=== PATIENT | female | born 1975 ===

== ENCOUNTER 2016-10-11 16:34 | Emergency (ER) | payer OTHER ==
[2016-10-11 16:34] VITALS: BMI 27.3
[2016-10-11 16:43] VITALS: O2SAT 100
[2016-10-11 17:13] LABS: RBC URINE 12 /hpf (0-3); URINE BACTERIA RARE (<OCC); URINE BILIRUBIN NEGATIVE (NEGATIVE); URINE BLOOD NEGATIVE (NEGATIVE); URINE COLOR Yellow (YELLOW); URINE GLUCOSE (UA) NORMAL (Normal); URINE KETONE NEGATIVE (NEGATIVE); URINE LEUKOCYTE ESTERASE 1+ Leu/uL (Negative); URINE PROTEIN 1+ mg/dL (NEGATIVE); URINE UROBILINOGEN NORMAL mg/dL (0.2-1.0); WBC URINE 2 /hpf (0-5)
[2016-10-11 17:29] LABS: BASO % 0.7 % (0.0-2.0); EOS # 0.1 K/uL (0.0-0.7); EOS % 1.6 % (0.0-4.0); HEMATOCRIT 35.6 % (34.0-47.0); LYMPH # 1.9 K/uL (1.0-4.3); LYMPH % 29.1 % (20.0-40.0); MEAN CELL VOLUME 95.3 fL (81.0-99.0); MEAN CORPUSCULAR HEMOGLOBIN 31.9 pg (27.0-31.0); MEAN CORPUSCULAR HGB CONC 33.5 g/dL (33.0-37.0); MEAN PLATELET VOLUME 10.4 fL (7.2-11.7); MONO # 0.5 K/uL (0.0-0.8); MONO % 8.2 % (0.0-10.0); NRBC % 0.1 % (0.0-2.0); RED CELL DISTRIBUTION WIDTH 13.4 % (11.5-14.5); WHITE BLOOD COUNT 6.4 K/uL (4.8-10.8)
[2016-10-11 17:32] LABS: CHLORIDE 95 mmol/L (98-107); POTASSIUM 3.5 mmol/L (3.6-5.2); SODIUM 136 mmol/L (132-148)
[2016-10-11 17:34] LABS: GFR AFRICAN-AMERICAN > 60
[2016-10-11 17:35] LABS: ALB/GLOB RATIO 0.9 (1.0-2.1); ALKALINE PHOSPHATASE 54 U/L (38-126); ALT/SGPT 23 U/L (9-52); AST/SGOT 19 U/L (14-36); BILIRUBIN,TOTAL 0.2 mg/dL (0.2-1.3); BLOOD UREA NITROGEN 16 mg/dL (7-17); CARBON DIOXIDE 24 mmol/L (22-30); GLUCOSE,RANDOM 90 mg/dL (65-105); TOTAL PROTEIN 9.4 g/dL (6.3-8.3)
[2016-10-11 17:36] LABS: CALCIUM 8.9 mg/dl (8.6-10.4)
--- NOTE | 2016-10-11 18:10 | C.PDOC ---
History Of Present Illness The patient, a 41 y/o female who is currently , presents to the ED for evaluation of lower abdominal pain which began yesterday. Patient describes her pain as as "cramping" sensation. Patient is unaware of the gestational age but states she was informed about her 2 weeks ago during a clinic visit. Patient reports nausea but denies fever, chills, vaginal discharge/bleeding. Time Seen by Provider: 10/11/16 17:00 Chief Complaint (Nursing): Abdominal Pain History Per: Patient History/Exam Limitations: no limitations Onset/Duration Of Symptoms: Hrs Current Symptoms Are (Timing): Still Present Location Of Pain/Discomfort: Other (+lower abdomen ) Radiation Of Pain To:: None Quality Of Discomfort: Cramping, "Pain" Associated Symptoms: Nausea. denies: Fever, Chills Exacerbating Factors: None Alleviating Factors: None Recent travel outside of the [place]: No Additional History Per: Patient Abnormal Vaginal Bleeding: No Past Medical History Reviewed: Historical Data, Nursing Documentation, Vital Signs Vital Signs: Last Vital Signs Temp 97.8 F 10/11/16 17:28 Pulse 82 10/11/16 17:28 Resp 20 10/11/16 17:28 BP 129/76 10/11/16 17:28 Pulse Ox 100 10/11/16 18:48 - Medical History PMH: No Chronic Diseases Surgical History: No Surg Hx Family History: States: Unknown Family Hx - Social History Hx Alcohol Use: No Hx Substance Use: No - Immunization History Hx Tetanus Toxoid Vaccination: No Hx Influenza Vaccination: No Hx Pneumococcal Vaccination: No Review Of Systems Except As Marked, All Systems Reviewed And Found Negative. Constitutional: Negative for: Fever, Chills Gastrointestinal: Positive for: Nausea, Abdominal Pain (lower) Genitourinary: Negative for: Vaginal Discharge, Vaginal Bleeding Physical Exam - Physical Exam Appears: Non-toxic, No Acute Distress Skin: Normal Color, Warm, Dry Head: Atraumatic, Normacephalic Eye(s): bilateral: Normal Inspection, EOMI Oral Mucosa: Moist Neck: Normal ROM, Supple Chest: Symmetrical, No Deformity, No Tenderness Cardiovascular: Rhythm Regular, No Murmur Respiratory: Normal Breath Sounds, No Rales, No Rhonchi, No Wheezing Gastrointestinal/Abdominal: Soft, No Tenderness, No Guarding, No Rebound Back: Normal Inspection, No Vertebral Tenderness, No Paraspinal Tenderness Extremity: Normal ROM, Capillary Refill (less than 2 seconds ) Neurological/Psych: Oriented x3, Normal Speech, Normal Cognition Gait: Steady ED Course And Treatment - Laboratory Results Result Diagrams: 10/11/16 17:21 10/11/16 17:21 O2 Sat by Pulse Oximetry: 100 (on RA) Pulse Ox Interpretation: Normal Medical Decision Making Medical Decision Making: Impression: 41y/o female with lower abdominal pain Plan: * labs * Transvaginal US * Tylenol PO * reassess and disposition Progress Notes: labs and Transvaginal US ordered. Patient received Tylenol PO. Disposition - Disposition Disposition Time: 18:55 Condition: STABLE - POA Present On Arrival: None - Clinical Impression Clinical Impression: Threatened - PA / WALL SCRAPER / Resident Statement ED has reviewed & agrees with the documentation as recorded. - Scribe Statement The provider has reviewed the documentation as recorded by the Scribe (Dana Mckeon) All medical record entries made by the Scribe were at my direction and personally dictated by me. I have reviewed the chart and agree that the record accurately reflects my personal performance of the history, physical exam, medical decision making, and the department course for this patient. I have also personally directed, reviewed, and agree with the discharge instructions and disposition. Physician Patient Turnover Patient Signed Over To: Jayson Leung DO Handoff Comments: Pending US, re-eval and dispo
--- NOTE | 2016-10-11 19:59 | US ---
EXAM: US First Trimester, Transabdominal CLINICAL HISTORY: 41 years old, female; Pain; complicated by abdominal or pelvic pain; Lower; First trimester; Gestational age or lmp: 09/2016, 4 weeks 4 days by dates; ; Additional info: with pain TECHNIQUE: Real-time transabdominal obstetrical ultrasound of the maternal pelvis and a first trimester with image documentation. COMPARISON: There are no prior studies for comparison. FINDINGS: Uterus: Uterus is retroflexed. The uterus measures approximately 8.3 x 4.8 x 6.3 cm. Endometrium measures approximately 11 mm in width area there is no intrauterine gestation. Adnexa: Neither ovaries could be identified. There are no adnexal masses IMPRESSION: Retroflexed uterus, no intrauterine or ectopic gestation identified EXAM: US , Transvaginal CLINICAL HISTORY: 41 years old, female; Pain; complicated by abdominal or pelvic pain; Lower; First trimester; Gestational age or lmp: 09/2016; ; Additional info: with pain TECHNIQUE: Real-time transvaginal obstetrical ultrasound of the maternal pelvis and a first trimester with image documentation. Transvaginal imaging was used for better evaluation of the fetus and adnexa. EXAM DATE/TIME: 10/11/2016 5:07 PM COMPARISON: There are no prior studies for comparison. FINDINGS: Uterus: Uterus measures approximately 7.3 x 5 x 6 cm. Cervix measures approximately 3 cm in length. There is a small gestational sac in the endometrium. Gestational sac has mean diameter of 8.5 mm. There is a yolk sac, internal diameter 0.6 mm. pole is not visible Right ovary: Right ovary measures approximately 3.14 x 1.94 x 2.28 cm.There is expected blood flow on Doppler imaging there is a corpus luteum in the right ovary. Left ovary: Left ovary measures approximately 2.58 x 1.15 x 2.40 cm.There is expected blood flow on Doppler imaging IMPRESSION: Intrauterine gestation too early to date; right corpus luteum
[2016-10-11 20:07] VITALS: BP 103/69; PULSE 81; RESP 18; TEMP 98.3
== END 2016-10-11 20:54 | disposition home or self-care (01) ==
LOC: C.ER 16:34
DX: O20.0 Threatened abortion (principal); Z3A.01 Less than 8 weeks gestation of pregnancy

== ENCOUNTER 2016-11-22 07:02 | Emergency (ER) | payer OTHER ==
[2016-11-22 07:18] VITALS: BP 105/68; PULSE 83; RESP 18; TEMP 97.7; O2SAT 99
--- NOTE | 2016-11-22 07:27 | C.PDOC ---
History Of Present Illness 41 y/o female, currently 11 weeks , presents to the ED for evaluation of chills, runny nose, and sore throat for the past 2 days. She denies cough, shortness of breath, abdominal pain, nausea, vomiting, diarrhea, vaginal bleeding/discharge, dysuria. Time Seen by Provider: 11/22/16 07:13 Chief Complaint (Nursing): Cough, Cold, Congestion History Per: Patient History/Exam Limitations: no limitations Onset/Duration Of Symptoms: Days (2) Current Symptoms Are (Timing): Still Present Location Of Pain: Throat Sick Contacts (Context): None Associated Symptoms: Chills, Sore Throat, Nasal Congestion. denies: Fever, Cough, Sputum, Neck Pain, Nausea, Vomiting, Diarrhea Ear Symptoms: Bilateral: None Severity: Mild Additional History Per: Patient Past Medical History Reviewed: Historical Data, Nursing Documentation, Vital Signs Vital Signs: Last Vital Signs Temp 97.7 F 11/22/16 07:16 Pulse 83 11/22/16 07:16 Resp 18 11/22/16 07:16 BP 105/68 11/22/16 07:16 Pulse Ox 99 11/22/16 08:02 - Medical History PMH: No Chronic Diseases Family History: States: No Known Family Hx - Social History Hx Alcohol Use: No Hx Substance Use: No - Immunization History Hx Tetanus Toxoid Vaccination: No Hx Influenza Vaccination: No Hx Pneumococcal Vaccination: No Review Of Systems Except As Marked, All Systems Reviewed And Found Negative. Constitutional: Positive for: Chills ENT: Positive for: Nose Congestion, Throat Pain. Negative for: Ear Pain, Throat Swelling Cardiovascular: Negative for: Chest Pain, Palpitations Respiratory: Negative for: Cough, Shortness of Breath, Sputum, Wheezing Gastrointestinal: Negative for: Nausea, Vomiting, Abdominal Pain, Diarrhea Genitourinary: Negative for: Dysuria, Hematuria, Vaginal Discharge, Vaginal Bleeding Physical Exam - Physical Exam Appears: Well, Non-toxic, No Acute Distress Skin: Normal Color, Warm, Dry, No Rash Eye(s): bilateral: Normal Inspection Ear(s): Bilateral: Normal Nose: Discharge (rhinorrhea) Oral Mucosa: Moist Throat: Normal, No Erythema, No Exudate, No Drooling Neck: Normal, Normal ROM, Supple Cardiovascular: Rhythm Regular Respiratory: Normal Breath Sounds, No Rales, No Rhonchi, No Wheezing Gastrointestinal/Abdominal: Normal Exam, Bowel Sounds, Soft, No Tenderness, Other (gravid ) Extremity: Normal ROM Neurological/Psych: Oriented x3 ED Course And Treatment O2 Sat by Pulse Oximetry: 99 (on RA) Pulse Ox Interpretation: Normal Progress Note: Patient given PO Claritin and Tylenol in ED, as well as Rx for same. She was insturucted to follow up with PMD/clinic in 1-2 days, and with ob /cross country coach within 1 week. Patient understands she should return to ED if she develops any cocerning symptoms. Reevaluation Time: 07:35 Reassessment Condition: Improved Disposition Counseled Patient/Family Regarding: Studies Performed, Diagnosis, Need For Followup - Disposition Referrals: [facility] [Outside] Disposition: HOME/ ROUTINE Disposition Time: 07:35 Condition: STABLE Additional Instructions: FOLLOW UP WITH YOUR DOCTOR/CLINIC IN 1-2 DAYS USE MEDICATIONS NEEDED DRINK PLENTY OF FLUIDS RETURN TO ER IF SYMPTOMS WORSEN Prescriptions: Acetaminophen [Tylenol 325mg tab] 650 mg PO Q6 PRN #30 tab PRN Reason: pain/fever Loratadine [Claritin] 10 mg PO DAILY PRN #14 tab PRN Reason: rhinorhea Instructions: Upper Respiratory Infection (ED), Viral Syndrome (ED) Print Language: TURKISH - POA Present On Arrival: None - Clinical Impression Clinical Impression: Viral disease, Upper respiratory infection - Scribe Statement The provider has reviewed the documentation as recorded by the Modesta Mckeon Provider Attestation: All medical record entries made by the Modesta were at my direction and personally dictated by me. I have reviewed the chart and agree that the record accurately reflects my personal performance of the history, physical exam, medical decision making, and the department course for this patient. I have also personally directed, reviewed, and agree with the discharge instructions and disposition.
== END 2016-11-22 07:39 | disposition home or self-care (01) ==
LOC: C.ER 07:02
DX: J06.9 Acute upper respiratory infection, unspecified (principal); B34.9 Viral infection, unspecified

== ENCOUNTER 2017-01-04 07:28 | Emergency (ER) | payer OTHER ==
[2017-01-04 07:34] VITALS: BMI 28.1
[2017-01-04 07:35] VITALS: BP 105/68; PULSE 87; RESP 15; TEMP 98.1; O2SAT 100
--- NOTE | 2017-01-04 08:10 | C.PDOC ---
History Of Present Illness 41-year-old female, presents to the emergency department with complaints of a generalized headache and "feeling tired." Patient states she has been experiencing trouble sleeping for the past three days. Patient recently moved into a new place and states that she is very stressed. Patient notes that she was at work yesterday and felt generalized weakness. Today, patient reports that she has work again, but is requesting a work note. Denies any fevers, nausea/vomiting, chills, chest pain, shortness of breath, dizziness, or any other associated symptoms. No other complaints at this time. Time Seen by Provider: 01/04/17 07:49 Chief Complaint (Nursing): Weakness/Neurological Deficit History Per: Patient History/Exam Limitations: no limitations Onset/Duration Of Symptoms: Days Current Symptoms Are (Timing): Still Present Past Medical History Reviewed: Historical Data, Nursing Documentation, Vital Signs Vital Signs: Last Vital Signs Temp 98.1 F 01/04/17 07:34 Pulse 87 01/04/17 07:34 Resp 15 01/04/17 07:34 BP 105/68 01/04/17 07:34 Pulse Ox 100 01/04/17 08:39 Family History: States: No Known Family Hx - Social History Hx Alcohol Use: No Hx Substance Use: No - Immunization History Hx Tetanus Toxoid Vaccination: No Hx Influenza Vaccination: No Hx Pneumococcal Vaccination: No Review Of Systems Except As Marked, All Systems Reviewed And Found Negative. Constitutional: Negative for: Fever Cardiovascular: Negative for: Chest Pain, Palpitations Respiratory: Negative for: Shortness of Breath Gastrointestinal: Negative for: Nausea, Vomiting Skin: Negative for: Rash Neurological: Negative for: Weakness, Numbness, Headache, Dizziness Physical Exam - Physical Exam Appears: Non-toxic, No Acute Distress Skin: Warm, Dry, No Rash Head: Atraumatic, Normacephalic Eye(s): bilateral: Normal Inspection, PERRL Nose: Normal Oral Mucosa: Moist Lips: Normal Appearing Neck: Normal ROM Cardiovascular: Rhythm Regular, No Murmur Respiratory: Normal Breath Sounds, No Accessory Muscle Use Gastrointestinal/Abdominal: Bowel Sounds, Soft (gravid), No Tenderness, No Distention, No Guarding Extremity: Normal ROM, No Tenderness, No Deformity, No Swelling Neurological/Psych: Oriented x3, Normal Speech, Other (No focal deficits) ED Course And Treatment O2 Sat by Pulse Oximetry: 100 Medical Decision Making Medical Decision Making: Patient remained afebrile alert and oriented with stable vital signs during ER evaluation. Patient has no complaints at this time and no clinical signs of UTI , pneumonia, intra-abdominal pathology, or cellulitis, significant dehydration, hemodynamic instability, or neurological deficits. Patient given work excuse Disposition Counseled Patient/Family Regarding: Diagnosis, Need For Followup - Disposition Disposition: HOME/ ROUTINE Disposition Time: 08:08 Condition: STABLE Additional Instructions: Usted puede lior tylenol para cualquier dolor de y[place]li [place] benadryl 25-50mg para ayudarle a dormir Instructions: Acute Headache (DC) Forms: Work Excuse Print Language: STATELESS - POA Present On Arrival: None - Clinical Impression Clinical Impression: Headache, Trouble getting to sleep - PA / FASHION EDITOR / Resident Statement MD/DO has reviewed & agrees with the documentation as recorded. - Scribe Statement The provider has reviewed the documentation as recorded by the Scribe (Debo Gottlieb) All medical record entries made by the Scribe were at my direction and personally dictated by me. I have reviewed the chart and agree that the record accurately reflects my personal performance of the history, physical exam, medical decision making, and the department course for this patient. I have also personally directed, reviewed, and agree with the discharge instructions and disposition.
== END 2017-01-04 08:22 | disposition home or self-care (01) ==
LOC: C.ER 07:28
DX: R51 Headache (principal); G47.9 Sleep disorder, unspecified

== ENCOUNTER 2017-02-27 17:56 | Emergency (ER) | payer OTHER ==
[2017-02-27] MEDS ORDERED: Lactated Ringer's 1,000 ML IV ONE (19:00)
--- NOTE | 2017-02-27 19:01 | OBHP ---
Datetime: 02/27/2017 18:52 IP Adm Impression: , intrauterine Admit Comment, IP Provider: 41 y/o @ 24.3 wks GA by LMP reports feelign some watery discharg e last ewek on her underwear. pt denies any itching, dysuira, urgency. pt also reports some crampign that started this morning eveyr few minutes , dneies any lof, vb, +FM. pt denies any fever, chills, n ausea, vomiting, CP, SOB< dysuira, urgency, frequency, constipation. pt reports not sexually active. Pt reports she receives pnc at clinic [facility]; AMA OB: FT 18 years ago reports uncomplicated [employer]CRA[employer]: deies PMH: deies PSH: dneies FX: denies SHX denies etoh/tobacco/drubs MEDS: pnv A/P @ 24.3 wks GA with non specific pain, no evidence of ROM with maternal and reassuig n well being -f/u CBC, UA -IVH -Tyoenol prn -d/c home once cleared -RTO 1 week -precatuions given -Rx Monisat 7 Pelvic Type - PN: Adequate Extremities - PN: Normal Abdomen - PN: Normal Back - PN: Normal Breast - PN: Not Done Lungs - PN: Normal Heart - PN: Normal Thyroid - PN: Not Done Neurologic - PN: Normal HEENT - PN: Normal General - PN: Normal FHR - Baseline A Provider: 150 Comments, ACOG Physical Exam: SSE External Genitali: no gross abnormalites Vagin: thick yello discharge, no fluid, no blood cervix; no blod clots, closed, no tender uteurs; non tender adnexa; non tender negative ferning/ amnisure Gestation - Est Wks by US: 24.3 IP Chief Complaint: Uterine contractions NICHD Variability Prov Fetus A: Moderate 6-25bpm NICHD Decel Fetus A IP Provider: None Genitourinary Exam: Normal DTRs - PN: Normal
[2017-02-27 19:20] LABS: BASO % 0.4 % (0.0-2.0); EOS # 0.1 K/uL (0.0-0.7); EOS % 1.1 % (0.0-4.0); HEMATOCRIT 29.7 % (34.0-47.0); LYMPH # 1.4 K/uL (1.0-4.3); LYMPH % 15.5 % (20.0-40.0); MEAN CELL VOLUME 96.7 fL (81.0-99.0); MEAN CORPUSCULAR HEMOGLOBIN 33.4 pg (27.0-31.0); MEAN CORPUSCULAR HGB CONC 34.6 g/dL (33.0-37.0); MEAN PLATELET VOLUME 9.5 fL (7.2-11.7); MONO # 0.7 K/uL (0.0-0.8); RED CELL DISTRIBUTION WIDTH 13.8 % (11.5-14.5); WHITE BLOOD COUNT 9.2 K/uL (4.8-10.8)
[2017-02-27 19:27] LABS: RBC URINE 2 /hpf (0-3); URINE BACTERIA OCC (<OCC); URINE BILIRUBIN NEGATIVE (NEGATIVE); URINE BLOOD NEGATIVE (NEGATIVE); URINE COLOR Yellow (YELLOW); URINE GLUCOSE (UA) NORMAL (Normal); URINE KETONE NEGATIVE (NEGATIVE); URINE LEUKOCYTE ESTERASE 3+ Leu/uL (Negative); URINE PROTEIN 1+ mg/dL (NEGATIVE); URINE UROBILINOGEN NORMAL mg/dL (0.2-1.0); WBC URINE 25 /hpf (0-5)
--- NOTE | 2017-02-27 20:16 | OBDCSUM ---
Datetime: 02/27/2017 20:12 Discharged to, Provider: Home Follow up at, Provider: Clinic Disch Instr Activity: Normal activity Disch Instr Diet: Regular Discharge Instructions, Provider: Routine instructions given Discharge Time: 02/27/2017 20:12 Follow up in weeks, Provider: 1 week Disch Referrals: None Contraception discussed, Prov: Yes Discharge Comment, Provider: shabana hoyt 7 recommend no douching precatuiosn given Discharge Diagnosis Prov Other: abdominal pian resolved, vaginitis in pegnanc
[2017-02-28 00:27] VITALS: BP 102/56; PULSE 84; TEMP 98; O2SAT 99
== END 2017-02-27 20:16 | disposition home or self-care (01) ==
LOC: C.EROB 17:56
DX: O75.89 Other specified complications of labor and delivery (principal); Z3A.24 24 weeks gestation of pregnancy
CPT/HCPCS: 81001; 85025; 99283; J7120

== ENCOUNTER 2017-04-05 12:04 | Emergency (ER) | payer SELFPAY ==
[2017-04-05 12:14] VITALS: TEMP 98.1
[2017-04-05 13:41] VITALS: BP 110/68; PULSE 78; RESP 18; O2SAT 98
--- NOTE | 2017-04-05 15:37 | C.PDOC ---
History Of Present Illness 41 yr old female who is 7 months , presents to the ER with complaints of a headache for the past 2 days, Patient states she took Tylenol yesterday but none today. Patient denies worse headache of her life, fever, vision changes , chest pain, SOB, nausea, vomiting, neck stiffness, neck pain, weakness or numbness. Patient was cleared by L&D. Time Seen by Provider: 04/05/17 12:35 Chief Complaint (Nursing): Headache History Per: Patient History/Exam Limitations: no limitations Onset/Duration Of Symptoms: Days Current Symptoms Are (Timing): Still Present Past Medical History Reviewed: Historical Data, Nursing Documentation, Vital Signs Vital Signs: Last Vital Signs Temp 98.1 F 04/05/17 12:09 Pulse 78 04/05/17 13:40 Resp 18 04/05/17 13:40 BP 110/68 04/05/17 13:40 Pulse Ox 98 04/05/17 15:38 Family History: States: No Known Family Hx - Social History Hx Alcohol Use: No Hx Substance Use: No - Immunization History Hx Tetanus Toxoid Vaccination: Yes Hx Influenza Vaccination: No Hx Pneumococcal Vaccination: No Review Of Systems Except As Marked, All Systems Reviewed And Found Negative. Constitutional: Negative for: Fever Eyes: Negative for: Vision Change Cardiovascular: Negative for: Chest Pain Respiratory: Negative for: Shortness of Breath Gastrointestinal: Negative for: Nausea, Vomiting Musculoskeletal: Negative for: Neck Pain Neurological: Positive for: Headache. Negative for: Weakness, Numbness Physical Exam - Physical Exam Appears: Non-toxic, No Acute Distress Skin: Warm, Dry, No Rash Head: Atraumatic, Normacephalic Eye(s): bilateral: Normal Inspection, PERRL, EOMI Oral Mucosa: Moist Neck: Normal, Normal ROM, Supple Chest: Symmetrical, No Tenderness Cardiovascular: Rhythm Regular, No Murmur Respiratory: Normal Breath Sounds, No Rales, No Rhonchi, No Stridor, No Wheezing Gastrointestinal/Abdominal: Normal Exam, Soft, No Tenderness, No Guarding, No Rebound, Other (Gravid) Extremity: Normal ROM, No Swelling Neurological/Psych: Oriented x3, Normal Speech, Normal Motor Gait: Steady ED Course And Treatment O2 Sat by Pulse Oximetry: 98 (RA) Pulse Ox Interpretation: Normal Medical Decision Making Medical Decision Making: PLAN: * Tylenol PO Disposition - Disposition Referrals: [facility] [Outside] [facility] [Outside] Disposition: HOME/ ROUTINE Disposition Time: 13:15 Condition: GOOD Additional Instructions: Thank you for letting us take care of you today. Your provider was Dr. Leung. You were treated for headache. The emergency medical care you received today was directed at your acute symptoms. If you were prescribed any medication, please fill it and take as directed. It may take several days for your symptoms to resolve. Return to the Emergency Department if your symptoms worsen, do not improve, or if you have any other problems. Please contact your doctor or call one of the physicians/clinics you have been referred to that are listed on the Patient Visit Information form that is included in your discharge packet. Bring any paperwork you were given at discharge with you along with any medications you are taking to your follow up visit. Our treatment cannot replace ongoing medical care by a primary care provider (PCP) outside of the emergency department. Thank you for allowing the [facility] team to be part of your care today. You can take Tylenol as directed for the pain. Follow up with your LATHE SETUP OPERATOR doctor in 2-3 days for re-evaluation and further management. Instructions: Acute Headache (ED) Forms: Gen Discharge Inst Armenian, Work Excuse Print Language: BENINESE - Clinical Impression Clinical Impression: Headache - Scribe Statement The provider has reviewed the documentation as recorded by the Modesta Garcia Provider Attestation: All medical record entries made by the Modesta were at my direction and personally dictated by me. I have reviewed the chart and agree that the record accurately reflects my personal performance of the history, physical exam, medical decision making, and the department course for this patient. I have also personally directed, reviewed, and agree with the discharge instructions and disposition.
== END 2017-04-05 13:42 | disposition home or self-care (01) ==
LOC: C.ER 12:04
DX: R51 Headache (principal)

== ENCOUNTER 2017-04-23 21:21 | Emergency (ER) | payer OTHER ==
[2017-04-23] MEDS ORDERED: Lactated Ringer's 1,000 ML IV ONE (21:40)
[2017-04-23 22:00] LABS: RBC URINE 9 /hpf (0-3); URINE BACTERIA RARE (<OCC); URINE BILIRUBIN NEGATIVE (NEGATIVE); URINE BLOOD 1+ (NEGATIVE); URINE COLOR Yellow (YELLOW); URINE GLUCOSE (UA) 1+ mg/dL (Normal); URINE KETONE NEGATIVE (NEGATIVE); URINE LEUKOCYTE ESTERASE NEG Leu/uL (Negative); URINE PROTEIN NEGATIVE (NEGATIVE); URINE UROBILINOGEN NORMAL mg/dL (0.2-1.0); WBC URINE 1 /hpf (0-5)
--- NOTE | 2017-04-24 10:54 | OBDCSUM ---
Datetime: 04/23/2017 21:57 Discharge Time: 04/24/2017 00:34
[2017-04-24 14:46] VITALS: BP 120/57; PULSE 89; RESP 18; TEMP 97.8; O2SAT 96
== END 2017-04-24 00:39 | disposition home or self-care (01) ==
LOC: C.EROB 21:21
DX: O26.893 Other specified pregnancy related conditions, third trimester (principal); Z3A.33 33 weeks gestation of pregnancy; R10.30 Lower abdominal pain, unspecified
CPT/HCPCS: 81001; 99283; J7120

== ENCOUNTER 2017-04-28 12:17 | Emergency (ER) | payer OTHER ==
[2017-04-28] MEDS ORDERED: Lactated Ringer's 1,000 ML IV ONE (13:15)
[2017-04-28 13:34] LABS: RBC URINE 7 /hpf (0-3); URINE BACTERIA RARE (<OCC); URINE BILIRUBIN NEGATIVE (NEGATIVE); URINE BLOOD 1+ (NEGATIVE); URINE COLOR Yellow (YELLOW); URINE GLUCOSE (UA) NORMAL (Normal); URINE KETONE TRACE mg/dL (NEGATIVE); URINE LEUKOCYTE ESTERASE NEG Leu/uL (Negative); URINE PROTEIN 1+ mg/dL (NEGATIVE); URINE UROBILINOGEN NORMAL mg/dL (0.2-1.0); WBC URINE 2 /hpf (0-5)
[2017-04-28] MEDS ORDERED: ceFAZolin IV 2 gm in Dextrose 1 GM/50 ML BAG IVPB ONE ×2 (13:45→13:46)
[2017-04-28] MEDS ORDERED: ceFAZolin IV 2 gm in Dextrose 1 GM/50 ML BAG IVPB SCH (14:00)
[2017-04-28 18:05] VITALS: BP 114/61; PULSE 87
--- NOTE | 2017-04-28 21:54 | OBHP ---
Datetime: 04/28/2017 13:13 IP Adm Impression: , intrauterine IP Adm Impression Other: uti IP Admit Plan: Discharge home Admit Comment, IP Provider: Patient is a 42 year old at 34w2d YVONNE 06/07/17 not c/w LMP presen ts to L and D for contractions that started at 7am this morning while driving. Patient states that sh e felt lower abdominal pain that was 7/10. Feeling CTX q5min. Pain is currently 6/10. Offers no other complaints at this time. Endorses +FM, denies VB. LOF. Denies dysuria, recent intercourse. Patient g oes to [facility] care Issues: Advanced Maternal Age OB Hx: 1. 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 Family Hx: Mother alive 63 y.o. no med issues. Father - renal failure. Paternal grand- au nt - breast cancer A/P: 42 year old at 34w2d presents for pre term contractions 1. Stable, afebrile 2. CEFM and TOCO 3. LR bolus 4. UA sent 5. Plan d/w attending Addendum: Category I tracing. UA results reviewed. Patient no longer durga after LR bolus an d 1gm ancef, will discharge home on Keflex 500mg BID. Patient to follow up with clinic as regularly s cheduled. Pre term labor precautions given Cate Hollins DO PGY-1 OB attending chief complaint-pelvis pain and pressure Patient examined agree with resident exam, assessment and plan Assessment- contractions, uti patient given 2 grams of iv ancef discharged home with script for keflex follow up in clinic in 1 week Katherine Pelvic Type - PN: Adequate Extremities - PN: Normal Abdomen - PN: Normal Back - PN: Normal Lungs - PN: Normal Heart - PN: Normal Neurologic - PN: Normal General - PN: Normal Presentation-Admit: Vertex FHR - Baseline A Provider: 135 Contraction Comments Provider: occ Comments, ACOG Physical Exam: VSS Gen: AAOx3 Abd: soft, gravid Ext: no c/c/e; no calf tenderness SVE: closed/thick/high EFM: 135, moderate variability, +accels, -decels TOCO: ctx 2-3min Gestation - Est Wks by US: 34.2 EGA AdmitDate IP: 34.2 Vital Signs Provider: Reviewed; Within Normal Limits IP Chief Complaint: Uterine contractions NICHD Variability Prov Fetus A: Moderate 6-25bpm NICHD Accel Fetus A IP Provider: [id number] FHR Category Provider Fetus A: Category I NICHD Decel Fetus A IP Provider: None Dilatation, Provider: 0 Genitourinary Exam: Normal DTRs - PN: Normal
== END 2017-04-28 14:03 | disposition home or self-care (01) ==
LOC: C.EROB 12:17
DX: O47.03 False labor before 37 completed weeks of gestation, third trimester (principal); O23.43 Unspecified infection of urinary tract in pregnancy, third trimester; Z3A.34 34 weeks gestation of pregnancy
CPT/HCPCS: 81001; 96374; 99283; J0690; J7120

== ENCOUNTER 2017-05-21 09:10 | Emergency (ER) | payer OTHER ==
[2017-05-12 11:06] VITALS: BMI 30.5
--- NOTE | 2017-05-21 11:58 | OBHP ---
Datetime: 05/21/2017 10:02 IP Adm Impression Other: nst reactive IP Admit Plan: Discharge home Admit Comment, IP Provider: Patient is a 42 year old at 36w2d YVONNE 06/16/17 and LMP (09/09/2016 ) presents to L and D for weekly NST due to advance maternal age and pmhx of Sjogren's syndrome. Prema ent endorses movement and denies contraction, vaginal bleeding, abdnormal vaginal discharge and leakage of fluid. Patient goes to [facility] for care. Issues: Advanced Maternal Age OB Hx: G1. 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 Family Hx: Mother alive 63 y.o. no med issues. Father - renal failure. Paternal grand- au nt - breast cancer Vital Sign: BP: 121/51 HR: 94 Physical Examination: See above A/P: 42 year old at 36w2d presents for weekly NST due to advance maternal age and pmhx of Sjogren's syndrome as per primary provider 1. Stable, afebrile 2. CEFM and TOCO 3. NST reactive 4. Continue with weekly NST as instructed by provider and continue care 5. Discharge patient home 6. Plan d/w attending Svitlana Trimble DO, PGY-1 OB attending Patient examined.agree with resident exam, assessment and plan Patient here for nst.nst reactive. patient discharged home follow up in clinic next week Pelvic Type - PN: Not Done Extremities - PN: Normal Abdomen - PN: Normal Back - PN: Normal Lungs - PN: Normal Heart - PN: Normal Neurologic - PN: Normal General - PN: Normal FHR - Baseline A Provider: 142 Contraction Comments Provider: none Comments, ACOG Physical Exam: Gen: AAOx3, NAD Cardio: RRR, Normal S1, S2 Pulm: CTA bilaterally Abdomen: Soft, gravid, fundal height: 35.6 cm Ext: No edema, no clubbing and no cyanosis EFM: 142, + accels, - decels TOCO: Irritability Gestation - Est Wks by US: 36.2 EGA AdmitDate IP: 36.2 Vital Signs Provider: Reviewed; Within Normal Limits IP Chief Complaint: evaluation NICHD Variability Prov Fetus A: Moderate 6-25bpm NICHD Accel Fetus A IP Provider: 15X15 FHR Category Provider Fetus A: Category I NICHD Decel Fetus A IP Provider: None Genitourinary Exam: Normal DTRs - PN: Not Done
[2017-05-21 14:27] VITALS: BP 121/51; PULSE 94
== END 2017-05-21 10:25 | disposition home or self-care (01) ==
LOC: C.EROB 09:10
DX: Z36.9 Encounter for antenatal screening, unspecified (principal); Z3A.36 36 weeks gestation of pregnancy

== ENCOUNTER 2017-06-02 14:04 | Inpatient (IN) | payer MEDICAID ==
[2017-05-12 11:06] VITALS: BMI 30.5
--- NOTE | 2017-06-02 20:55 | OBADHP ---
Datetime: 06/02/2017 20:46 Admit Comment, IP Provider: chief complaint-induction of labor HPI 42 yo at 39 .3 wga here for induction of labor patient denies vaginal bleeidng or loss of fluid course complicated by AMA, hx of sjogremns syndrome. care with [facility] PMH denies PSH denies OBGYN HX ; hx of nvd at term 6.15 pounds ; denie shx of std, fibroids Social hx deneis tobacco,alcohol or illicit drug use Exam see exam section A/P 42 y/o at 39.3 wga here for induction of labor.GBS negativce -admit -see orders -discussed with patient about the induction process.Risks discussd.patient voices understading the risks and desirse to proceed. Pelvic Type - PN: Adequate Extremities - PN: Normal Abdomen - PN: Normal Back - PN: Normal Lungs - PN: Normal Heart - PN: Normal Neurologic - PN: Normal General - PN: Normal Weight - Estimated: 3200 Presentation-Admit: Vertex Contraction Comments Provider: occ IP Hx Assessment: The History has been Reviewed and is Current Vital Signs Provider: Reviewed; Within Normal Limits IP Chief Complaint: Scheduled induction of labor FHR Category Provider Fetus A: Category I Dilatation, Provider: finger tip Effacement, Provider: 50 Station, Provider: -3 Genitourinary Exam: Normal DTRs - PN: Normal EGA AdmitDate IP: 39.3 IP Adm Impression: Term, intrauterine IP Admit Plan: Admit to unit Datetime: 05/21/2017 10:02 IP Adm Impression Other: nst reactive FHR - Baseline A Provider: 142 Comments, ACOG Physical Exam: Gen: AAOx3, NAD Cardio: RRR, Normal S1, S2 Pulm: CTA bilaterally Abdomen: Soft, gravid, fundal height: 35.6 cm Ext: No edema, no clubbing and no cyanosis EFM: 142, + accels, - decels TOCO: Irritability Gestation - Est Wks by US: 36.2 NICHD Variability Prov Fetus A: Moderate 6-25bpm NICHD Accel Fetus A IP Provider: 15X15 NICHD Decel Fetus A IP Provider: None Datetime: 04/23/2017 21:42 IP Chief Complaint Other: Pelvic pressure Breast - PN: Not Done Thyroid - PN: Not Done HEENT - PN: Normal Datetime: 04/05/2017 11:54 IP Admit Plan Other: Transfer to E.D.
[2017-06-02] MEDS: Lactated Ringer's 1,000 ML IV SCH (21:00)
[2017-06-02 21:18] LABS: BASO % 0.2 % (0.0-2.0); EOS # 0.1 K/uL (0.0-0.7); EOS % 0.9 % (0.0-4.0); HEMATOCRIT 34.8 % (34.0-47.0); LYMPH # 1.4 K/uL (1.0-4.3); LYMPH % 17.2 % (20.0-40.0); MEAN CELL VOLUME 95.9 fL (81.0-99.0); MEAN CORPUSCULAR HEMOGLOBIN 32.7 pg (27.0-31.0); MEAN CORPUSCULAR HGB CONC 34.1 g/dL (33.0-37.0); MEAN PLATELET VOLUME 10.9 fL (7.2-11.7); MONO # 0.7 K/uL (0.0-0.8); NRBC % 0.1 % (0.0-2.0); WHITE BLOOD COUNT 8.4 K/uL (4.8-10.8)
[2017-06-02 21:26] LABS: RBC URINE 8 /hpf (0-3); TRANSITIONAL EPITHIAL < 1 /hpf (0-3); URINE BACTERIA RARE (<OCC); URINE BILIRUBIN NEGATIVE (NEGATIVE); URINE COLOR Yellow (YELLOW); URINE GLUCOSE (UA) NORMAL (Normal); URINE KETONE NEGATIVE (NEGATIVE); URINE LEUKOCYTE ESTERASE NEGATIVE Leu/uL (Negative); URINE PROTEIN 1+ mg/dL (NEGATIVE); URINE UROBILINOGEN NORMAL mg/dL (0.2-1.0); WBC URINE 1 /hpf (0-5)
[2017-06-02 21:27] LABS: URINE BLOOD 1+ (NEGATIVE)
[2017-06-02 22:22] LABS: ALB/GLOB RATIO 0.8 (1.0-2.1); ALKALINE PHOSPHATASE 209 U/L (38-126); ALT/SGPT 39 U/L (9-52); AST/SGOT 24 U/L (14-36); BILIRUBIN,TOTAL 0.5 mg/dL (0.2-1.3); BLOOD UREA NITROGEN 13 mg/dL (7-17); CALCIUM 8.5 mg/dl (8.6-10.4); CARBON DIOXIDE 15 mmol/L (22-30); CHLORIDE 102 mmol/L (98-107); GFR AFRICAN-AMERICAN > 60; GLUCOSE,RANDOM 80 mg/dL (65-105); POTASSIUM 3.7 mmol/L (3.6-5.2); SODIUM 131 mmol/L (132-148)
--- NOTE | 2017-06-03 01:09 | OBPN ---
Datetime: 06/02/2017 22:22 IP Progress Impression: Normal progression of labor IP Progress Plan: Induction; Cervical Ripening Contraction Comments Provider: irregular FHR - Baseline A Provider: 140 IP Progress Note Comment: Patient seen and examined at bedside. Patient is doing well, endorses +FM, feeling occasional CTX, denies LOF or VB. VS: BP 111/56 HR 80 Gen: AAOx3 Abd: Soft, gravid Ext: No clubbing, cyanosis, edema A/P: 42 year old at 39w3d presents for Induction of labor, AMA, hx of sjogren syndrome -Stable, afebrile -CEFM and TOCO -Cervidil placed at 9:34 pm -Continue present management -Plan d/w attending Cate Hollins DO PGY-1 Patient examined.agree with resident exam, assessment and plan Vital Signs Provider: Reviewed NICHD Accel Fetus A IP Provider: 15X15 FHR Category Provider Fetus A: Category I NICHD Variability Prov Fetus A: Moderate 6-25bpm Dilatation, Provider: fingertip NICHD Decel Fetus A IP Provider: None Datetime: 06/02/2017 20:46 Weight - Estimated: 3200 Presentation-Admit: Vertex Effacement, Provider: 50 Station, Provider: -3 Datetime: 05/21/2017 10:02 Gestation - Est Wks by US: 36.2
[2017-06-03] MEDS: Lactated Ringer's 1,000 ML IV SCH ×2 (08:20→11:53)
--- NOTE | 2017-06-03 10:46 | OBPN ---
Datetime: 06/03/2017 10:31 IP Procedures Other: Cervidil removed IP Progress Impression Other: Cervical progress IP Procedures: Sterile Vag Exam IP Progress Plan: Continue present management; Cervical Ripening; Anesthesia consult Membranes, Provider: Intact Contraction Comments Provider: 1-3 FHR - Baseline A Provider: 135 Gestation - Est Wks by US: 39w 4d Presentation-Admit: Vertex IP Progress Note Comment: Patient received in LDR#1: reports lower abdominal paiin 02/12. (+) FM. Cervical exam: as above. Cervidil removed. Assessment: HD#2, 42 y.o. P1, 39w 4d, IOL secondary to Sjorgren's syndrome; AMA. GBS (-). Categor y 1 tracing. D/W patient continued cervical ripening - method to be determined after continue m onitoring - patient expressed an understanding and agrees. Patient is receptive to epidural for pain management/ relief. Patietn is clinically stable. Plan: 1) patient may shower 2) reassess tracing for continue cervical ripening 3) Anesthesia consult 4) Anticipate vaginal delivery Vital Signs Provider: Reviewed; Within Normal Limits NICHD Accel Fetus A IP Provider: 15X15 FHR Category Provider Fetus A: Category I NICHD Variability Prov Fetus A: Moderate 6-25bpm Dilatation, Provider: 2-3 Effacement, Provider: 30 Station, Provider: -3 NICHD Decel Fetus A IP Provider: None
[2017-06-03] MEDS ORDERED: Bupivacaine 0.125%/FentaNYL 200 ML EPI ONE (11:36)
[2017-06-03] MEDS ORDERED: Oxytocin 30 UNIT 30 UNITS/500 ML BAG IV PRN (13:37)
[2017-06-03] MEDS ORDERED: Sodium Citrate/Citric Acid 15 ml Sol PO ONE (15:52)
[2017-06-03] MEDS ORDERED: cefOXitin IV 2 gm in Dextrose 2 GM/50 ML BAG IVPB ONE ×2 (15:52→15:59)
[2017-06-03] MEDS ORDERED: Sodium Citrate/Citric Acid 15 ml Sol ONE (15:59)
[2017-06-03] MEDS ORDERED: Phenylephrine 10 mg/ml Inj ONE (16:25)
[2017-06-03] MEDS ORDERED: ePHEDrine 50 mg/ml Inj ONE (16:25)
[2017-06-03] MEDS ORDERED: Ketamine 50 mg/ml Inj (10 ml) ONE (16:25)
[2017-06-03] MEDS ORDERED: Oxytocin 10 Units/ml Inj ONE (16:56)
[2017-06-03] MEDS ORDERED: Oxycodone/Acetaminophen 5/325 mg Tab PO PRN (18:26)
--- NOTE | 2017-06-03 21:03 | OBPN ---
Datetime: 06/03/2017 16:19 IP Progress Impression: Non-reassuring heart rate IP Procedures: Sterile Vag Exam IP Progress Plan: Deliver- Section Membranes, Provider: Intact Contraction Comments Provider: 1-2 Vital Signs Provider: Reviewed; Within Normal Limits Dilatation, Provider: 6 Effacement, Provider: 50 Station, Provider: -2 Datetime: 06/03/2017 12:56 IP Procedures Other: Intracervical balloon FHR - Baseline A Provider: 130 Gestation - Est Wks by US: 39w 4d Presentation-Admit: Vertex IP Progress Note Comment: Patient was examined at approximately 1241 hours: cervical exam s above. Decision made to continue with cervical with intracervical balloon. Same inserted without inciden t. Patient tolerated procedure well. Assessment: 42 y.o. P1, 39w 4d, IOL for Sjorgren's syndrome; as above. Category 1 tracing. Clini harmony stable. Plan: 1) As above. 2) Possible pitocin to enhance cervical ripening 3) Anticipate vaginal delivery NICHD Accel Fetus A IP Provider: 15X15 FHR Category Provider Fetus A: Category I NICHD Variability Prov Fetus A: Moderate 6-25bpm NICHD Decel Fetus A IP Provider: None
--- NOTE | 2017-06-03 21:16 | OBPN ---
Datetime: 06/03/2017 16:19 FHR - Baseline A Provider: 110 bpm IP Progress Note Comment: FHR tracing noted for episodic decelerations ranging from variable to late . Tracing would improve with appropriate interventions ranging from repositioning mother in lateral p osition, oxygen by face mask, discontinuing pitocin, IVF bolus. Intracervical balloon had fallen out as expected; cervical exam as above. Patient in essence with a positive contractions stress test, an d was still remote from delivery. To this end, patient was counseled for abdominal delivery. To ens ure patient completely understand, [employer] translating service was used: [place] [id number]. At the en d of the counseling for my recommendaiton to proceed with abdomnal delivery, patient expressed an und erstanding and agreed to the procedure. No questions were offered; and after a full discussion of R/ B/C of , and counseling on the possibliity of blood transfusion, consents were signed, dated , witnessed and placed in her chart. Assessment: 42. y.o. P1, 39w 4d, repetitive late decelerations, inabiliity to tolerate pitocin, re mote from delivery for primary . Sjorgren's syndrome - stable. Category III tracing for imme dicate delivery. Clinically stable. Plan: 1) Notify anesthesia 2) Notify peds 3) Abdomnal prep and shave 4) Pre-op meds 5) call out operator to O.R. NICHD Accel Fetus A IP Provider: 10X10 FHR Category Provider Fetus A: Category III NICHD Variability Prov Fetus A: Moderate 6-25bpm NICHD Decel Fetus A IP Provider: Late
--- NOTE | 2017-06-03 21:21 | OBDS ---
DELIVERY PERSONNEL Delivery Doctor: Nael Fisher MD [employer] Umpire: Erika Vidal RN Anesthesiologist: dr Vaughn Manager Studio: Sherice Hernandez CRNA Resident: Dr Faye MATERNAL INFORMATION Delivery Anesthesia: Epidural Medications in Delivery: 40 units pitocin Estimated Blood Loss (ml): 800 Placenta Cultured: No Maternal Complications: None RN Comments: primary liveborn baby girl, 9/9; mother and baby in stable condition Provider Comments: Uncomplicated primary with atraumatic delivery of live female infant fr om ANDRES position, weight 6lb 9oz, 's 9/9; cord pH 7.24. Placenta - grossly intact; 3 vessel cord . Routine closure; hemostasis assured throughout the procedure. Patient tolerated procedure well - transferred to R#1 in stable condition. Infant had been transferred to nursery - also in stable co ndition LABOR SUMMARY EDC: 06/06/2017 00:00 No. Babies in Womb: 1 Attempted: No Labor Anesthesia: Epidural LABOR INFORMATION Reason for Induction: Other Reason for Induction Other: sjorgren's syndrome Onset of Labor: 06/03/2017 12:41 Cervical Ripening Agents: Cervidil (Annotations: cervidil pulled by Dr Fisher) Oxytocin: Augmentation Group B Beta Strep: Negative Steroids Given: None Reason Steroids Not Administered: Not Applicable MEMBRANES Membranes Rupture Method: Artificial Rupture of Membranes: 06/03/2017 16:51 Length of Rupture (hrs): 0.00 Amniotic Fluid Color: Clear Amniotic Fluid Amount: Moderate Amniotic Fluid Odor: None STAGES OF LABOR Stage 3 hrs: 0 Stage 3 min: 1 Total Time in Labor hrs: 4 Total Time in Labor min: 11 CSECTION DELIVERY Primary Indication: Nonreassuring Status Other Primary Indication: late decelerations CSection Urgency: Non Elective CSection Incidence: Primary Labor: Labor Elective: Nonelective CSection Incision: Lower Uterine Transverse BABY A INFORMATION Infant Delivery Date/Time: 06/03/2017 16:51 Method of Delivery: Born in Route : No : N/A Forceps: N/A Vacuum Extraction: N/A Shoulder Dystocia : No SHOULDER DYSTOCIA BABY A Delivery Date/Time: 06/03/2017 16:51 PRESENTATION/POSITION BABY A Presentation: Cephalic Cephalic Presentation: Vertex Vertex Position: Left Occipital Anterior Breech Presentation: N/A PLACENTA INFORMATION BABY A Placenta Delivery Time : 06/03/2017 16:52 Placenta Method of Delivery: Expressed Placenta Status: Delivered SCORES BABY A Heart Rate 1 min: >100 bpm Resp Effort 1 min: Good Cry Reflex Irritability 1 min: Cough or Sneeze or Pulls Away Muscle Tone 1 min: Active Motion Color 1 min: Body Hoberg, Extremities Blue Resuscitation Effort 1 min: Tactile Stimulation SCORE 1 MIN: 9 Heart Rate 5 min: >100 bpm Resp Effort 5 min: Good Cry Reflex Irritability 5 min: Cough or Sneeze or Pulls Away Muscle Tone 5 min: Active Motion Color 5 min: Body Hoberg, Extremities Blue Resuscitation Effort 5 min: N/A SCORE 5 MIN: 9 INFORMATION BABY A Gestational Age at Delivery: 39.4 Gestational Status: Term Infant Outcome : Liveborn Infant Condition : Stable Sex: Female IDENTIFICATION/MEDS BABY A ID Band Number: [id number] ID Band Location: Left Leg; Left Arm Sensor Applied: Yes Sensor Number: [id number] Sensor Location : Cord Clamp Vitamin K Given : Not Given Erythromycin Given: Not Given WEIGHT/LENGTH BABY A Infant Birthweight (gms): 2980 Weight (lb): 6 Weight (oz): 9 Length Inches: 18.75 Length cms: 47.6 CORD INFORMATION BABY A No. Cord Vessels: 3 Nuchal Cord : N/A Cord Blood Taken: Yes Suction: Mouth; Nose ASSESSMENT BABY A Complications: Multiple Late Decels; Multiple Variable Decels Physical Findings at Delivery: Within Normal Limits Respirations: Grunting Pet Care Technician/ALS Called : No Infant Care By: Dr Aponte Transferred To: [facility]
[2017-06-03] MEDS: Simethicone 80 mg Chewtab PO SCH (21:45)
--- NOTE | 2017-06-03 22:00 | PCM.SURG1 ---
Surgeon's Initial Post Op Note - Surgeon's Notes Surgeon: Ekaterina Fisher MD Regular Senior Care Provider: Tello Love MD; 2nd Asst: Cate Hollins DO; 3rd Asst: Josiane Pyle MS3 Type of Anesthesia: Other (Epidural) Anesthesia Administered By: Nathan Parham DO Pre-Operative Diagnosis: 39 weeks 4 days gestation; repetitive late deceleratoins, inability to tolerate pitocin, remote from delivery; Advanced maternal age. Sjorgren's syndrome. Operative Findings: Live female infant, ANDRES position; weight 6lb 9oz; 's 9/ 9; cord pH 7.24. 5 cm extension inferiorly on lower uterine segment on the left. Normal uterus; normal fallopian tubes and ovaries, bilaterally Post-Operative Diagnosis: Same Operation Performed: Primary transverse lower uterine segment section Specimen/Specimens Removed: None Estimated Blood Loss: EBL {In ML}: 800 (U.O. 400 mL; IVFs 2000mL LR) Blood Products Given: N/A (40 units total of pitocin) Drains Used: No Drains Post-Op Condition: Good Date of Surgery/Procedure: 06/03/17 Time of Surgery/Procedure: 18:50
[2017-06-03] MEDS: Oxycodone/Acetaminophen 5/325 mg Tab PO PRN (22:51)
[2017-06-03] MEDS ORDERED: Morphine Monoject Barrel PCA 1mg/ml IV PRN (23:54)
[2017-06-04] MEDS ORDERED: Morphine Monoject Barrel PCA 1mg/ml IV PRN (00:15)
--- NOTE | 2017-06-04 01:20 | OP ---
PROCEDURE DATE: 06/03/2017 PREOPERATIVE DIAGNOSES: A 39 weeks 4 days gestation, repetitive late decelerations, inability to tolerate pitocin - remote from delivery; advanced maternal age, and Sjogren's syndrome. POSTOPERATIVE DIAGNOSES: A 39 weeks 4 days gestation, repetitive late decelerations, inability to tolerate pitocin - remote from delivery, advanced maternal age, and Sjogren's syndrome. OPERATION: Primary transverse lower uterine segment Caesarean section. SURGEON: Ekaterina Fisher MD PIE CRIMPING MACHINE OPERATOR: Tello Love MD SECOND BROOM MAKER: Cate Hollins DO, PGY-1 THIRD BROOM MAKER: Josiane Pyle MS-3 ANESTHESIA TYPE: Epidural. ANESTHESIOLOGIST: Nathan Parham DO OPERATIVE FINDINGS: Live female infant from the left occipitoanterior position, weight 6 pounds 9 ounces, Apgars 9 and 9 at one and five minutes respectively; a cord pH of 7.24. There was a 5 cm extension inferiorly on the lower uterine segment on the left. Normal uterus; and normal fallopian tubes and ovaries bilaterally. SPECIMENS: None. ESTIMATED BLOOD LOSS: 800 mL. URINE OUTPUT: Approximately 400 mL. INTRAVENOUS FLUIDS: Approximately 2000 mL LR. OTHER PRODUCTS: A total of 40 units of Pitocin was administered. BLOOD PRODUCTS: None. DRAINS: None. POSTOPERATIVE CONDITION: Good. COMPLICATIONS: None. DESCRIPTION OF PROCEDURE: The patient was taken to the operating room after having obtained informed consent for the anticipated procedure. This included discussion of possible risks and complications including but not limited to infection requiring continued antibiotics, hemorrhage requiring blood transfusion and repair of any damage to internal organs, and possible Caesarean hysterectomy. The patient expressed understanding. No questions were offered. All consents were signed, dated, witnessed and placed in the patient's chart. The patient already had a Laws catheter inserted under sterile condition. Mefoxin 2 grams was administered. The patient was then transferred to the operating room. On the operating room table, a bolus was given in the epidural and adequate level was anticipated. The abdomen was prepped and she was subsequently draped in usual sterile fashion. After assuring an adequate level of anesthesia, using a scalpel, a Pfannenstiel incision was made on the skin. The incision was carried down through the subcutaneous tissue to the level of the fascia using the Bovie electrocautery. The fascia was identified and nicked in the midline and the incision was extended bilaterally using the Bovie electrocautery. The overlying fascia was dissected off the rectus muscle. The rectus muscle was then in the midline by blunt dissection and the parietal peritoneum was pierced by blunt dissection. The vesicouterine reflection was identified and the bladder flap was created. A transverse incision was then made on the lower uterine segment. The incision was extended bilaterally using bandage scissors. Amniotomy was performed and a moderate amount of clear amniotic fluid was retrieved. Atraumatic delivery of the infant with findings as above then ensued. Once on the operative field, the 's mouth and nose were bulb suctioned as the umbilical cord was doubly clamped and cut. Segment of the umbilical cord was secured for cord pH analysis and the results are as above. The placenta was removed by manual extraction, it was grossly normal with three vessels present in the cord. The uterus was exteriorized for closure. The uterus was noted to be boggy and an addition to the 20 units of Pitocin that had been infusing, an additional 20 units of pitocin were added for a total of 40 units. The uterus was noted to firm up considerably. Attention was then directed to the uterine incision, at which point the extension was noted. The extension was repaired using 0 Vicryl in two layers. First layer with a running interlocking fashion and the second layer with a vertical imbricating fashion. The transverse incision was then also repaired using 0 Vicryl in two layers. The first layer with a running interlocking fashion and the second layer in vertical imbricating fashion. Additional sutures of [id number] were placed using 2-0 Monocryl to assure hemostasis. Attention was then directed to the posterior aspect of the uterus, the findings as above for the pelvic viscera. Copious irrigation was performed. Attention was redirected to the uterine incision. It was noted to be hemostatic and Surgicel was placed along the uterine incision. The bladder flap was then reapproximated using 2-0 chromic in a running fashion. The uterus was returned to the abdominal cavity and the paracolic gutters were cleared of all debris. The parietal peritoneum was then reapproximated using 2-0 chromic in a running fashion and the rectus muscles were reapproximated in the midline also using 2-0 chromic in a running fashion. The fascia was reapproximated using 0 Vicryl in a running fashion in one suture. The subcutaneous tissue was reapproximated using plain catgut in a running fashion. The skin was reapproximated using 4-0 Monocryl in a subcuticular fashion. Steri-Strips were applied as were pressure dressing. The patient was then positioned in a frog-leg manner. Bimanual examination and exploration was performed. The uterus was cleared of all clots and debris and it was noted to be contracted and firm. Dr. Tello Love was present throughout the entire procedure from beginning to end. His presence and surgical expertise were needed for the following; 1. Assuring adequate visualization of the operative field at all times. 2. Safe and atraumatic delivery of the infant as described above. 3. Assuring adequate hemostasis throughout. Ekaterina Fisher MD ÁNGELA
[2017-06-04] MEDS: Lactated Ringer's 1,000 ML IV SCH (01:41)
[2017-06-04 07:41] LABS: BASO % 0.2 % (0.0-2.0); EOS % 0.2 % (0.0-4.0); HEMATOCRIT 31.8 % (34.0-47.0); LYMPH # 0.9 K/uL (1.0-4.3); MEAN CELL VOLUME 97.1 fL (81.0-99.0); MEAN PLATELET VOLUME 10.9 fL (7.2-11.7); MONO # 0.6 K/uL (0.0-0.8); MONO % 5.7 % (0.0-10.0); PLATELET COUNT 173 K/uL (130-400); RED CELL DISTRIBUTION WIDTH 14.1 % (11.5-14.5); WHITE BLOOD COUNT 10.3 K/uL (4.8-10.8)
[2017-06-04] MEDS: Simethicone 80 mg Chewtab PO SCH ×4 (09:24→22:04)
[2017-06-04 09:52] LABS: BASOPHIL 1 % (0-2); NEUTROPHIL 73 % (50-75); TOTAL CELLS COUNTED 100
[2017-06-04 09:55] LABS: LARGE PLATELETS PRESENT
--- NOTE | 2017-06-04 10:11 | OBPPN ---
Datetime: 06/04/2017 10:06 PP Pain Prov: Within normal limits PP Nausea Prov: Denies PP Flatus Prov: No PP BM Prov: No PP Heart Prov: Normal PP Lungs Prov: Normal PP Abdomen/Uterus Prov: Normal PP Lochia Prov: Normal PP CVA Tenderness Prov: Normal PP Extremities Prov: Normal PP C/S Incision Prov: Normal PP Progress Prov: Normal PP Impression Prov: Normal progression PP Plan Prov: Continue present management PP Progress Note Prov: S-patient states that her pain is well controlled.tolerating clears.denies na usea, vomiting,headache, chest pain, shortness of breath, epigastric pain. O-VSS Afebrile Fundus firm and below umbilcius extremities no calf tenderness Dressing clean, drt and intact abdoemn soft and notender A/P Patient s/p csection pod 1 doing well -continue routine post op care -encourage ambulation and po fluid intake Vital Signs Provider PP: Reviewed
[2017-06-04] MEDS: Oxycodone/Acetaminophen 5/325 mg Tab PO PRN ×2 (10:58→19:03)
[2017-06-04] MEDS ORDERED: Bisacodyl 5mg EC Tab PO ONE (18:27)
[2017-06-05] MEDS: Oxycodone/Acetaminophen 5/325 mg Tab PO PRN ×3 (07:13→17:50)
--- NOTE | 2017-06-05 10:11 | OBPPN ---
Datetime: 06/05/2017 07:11 PP Pain Prov: Within normal limits PP Nausea Prov: Denies PP Flatus Prov: No PP BM Prov: No PP Heart Prov: Normal PP Lungs Prov: Normal PP Abdomen/Uterus Prov: Normal PP Lochia Prov: Normal PP Extremities Prov: Normal PP C/S Incision Prov: Normal PP Progress Prov: Normal PP Comments Phys Exam Prov: Fundus firm below umbilicus Incision c/d/i with steristrips No clubbing, cyanosis, edema; no calf tenderness PP Impression Prov: Normal progression PP Plan Prov: Continue present management PP Progress Note Prov: Patient seen and examined at bedside. Per nursing no acute events overnight. Patient is doing well, pain is controlled. Lochia is mild. Patient is ambulating and tolerating diet. Denies passing flatus and BM. Urinating without difficulty. Breast feeding. Denies headaches, dizzin ess, cp, palpitations, sob, urinary symptoms. VS: 98/57 91 98.3 Gen: AAOx3 CV: RRR Lungs: CTA B/L Abd: Soft, fundus firm below umbilicus, incision c/d/i with steristrips Ext: No clubbing, cyanosis, edema; no calf tenderness Labs: 8.4>11.9/34.8<198 10.3>10.8/31.8<173 A positive Rubella immune A/P: 42 year old at 39w4d s/p PLTCD 2/2 NRFHT POD#2 -Stable, afebrile -Pain control: percocet and motrin prn -Encourage ambulation and hydration -Encourage -Continue routine care -Anticipate d/c home tomorrow Merle agrees -Plan d/w attending Cate Hollins DO PGY-1 Vital Signs Provider PP: Reviewed
[2017-06-05] MEDS: Simethicone 80 mg Chewtab PO SCH ×4 (10:13→21:37)
[2017-06-06] MEDS: Oxycodone/Acetaminophen 5/325 mg Tab PO PRN (07:35)
[2017-06-06] MEDS: Simethicone 80 mg Chewtab PO SCH (09:18)
[2017-06-06 09:36] VITALS: BP 108/69; PULSE 98; RESP 18; TEMP 98.9; O2SAT 98
--- NOTE | 2017-06-06 10:59 | OBPPN ---
Datetime: 06/06/2017 08:52 PP Pain Prov: Within normal limits PP Nausea Prov: Denies PP Flatus Prov: Yes PP BM Prov: No PP Impression Prov: Normal progression PP Plan Prov: Continue present management; Discharge PP Progress Note Prov: Patient seen and examined at bedside. Per nursing no acute events overnight. Patient is doing well, pain is controlled. Lochia is mild. Patient is ambulating and tolerating diet. Urinating without difficulty. Passing flatus, no BM. Breast feeding. Denies headaches, dizziness, cp , palpitations, sob, urinary symptoms. VS: 119/77 102 98.8 Gen: AAOx3 CV: RRR Lungs: CTA B/L Abd: Soft, appropriately tender, incision c/d/i with steristrips, fundus firm below umbilicus Ext: No clubbing, cyanosis, edema; no calf tenderness Labs: 8.4>11.9/34.8<198 10.3>10.8/31.8<173 A positive Rubella immune A/P: 42 year old at 39w4d s/p PLTCD 2/2 NRFHT POD#3 -Stable, afebrile -Pain control: Motrin and percocet prn -Encourage ambulation and hydration -Encourage -Discussed contraception option with patient - unsure -Anticipate discharge home today - pelvic rest x 6 weeks, f/u with clinic in 1 week for incision c heck -Discussed plan with attending Cate Hollins DO PGY-1 Attending Note: patient seen, evaluated and examined by me with the Resident. I agree with the ab ove as documented. - POD#3 42 y.o. P2, S/P primary LTCS for non reassuring herat tracing/ repetitive late decel erations. 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 All else as above. Patient is clinically stable. Plan: 1) Discharge home
--- NOTE | 2017-06-06 11:02 | OBDCSUM ---
Datetime: 06/06/2017 08:59 Discharged to, Provider: Home Follow up at, Provider: [facility] clinic Disch Instr Activity: Normal activity; May be up to bathroom; May be up for meals; May Shower Disch Instr Diet: Regular Discharge Instructions, Provider: Routine instructions given Discharge Diagnosis, Provider: Term Delivered Discharge Time: 06/06/2017 10:00 Follow up in weeks, Provider: 06/10/17 Disch Referrals: None Contraception discussed, Prov: Yes Disch Activity Restrictions: No sexual activity; Nothing in vagina - [place], tampons, douche Discharge Comment, Provider: F/U with clinic 06/10/17 for incision check Pelvic rest x 6 weeks Call [facility] for appointment Discharge Diagnosis Prov Other: Status post primary section Advanced maternal age Sjorgren's syndrome Anemia Contraception counseling Contraception after Delivery: Undecided
[2017-06-06] MEDS ORDERED: Influenza Vaccine 60 mcg/0.5 mL SYR (4YR UP) IM ONE (11:30)
== END 2017-06-06 12:00 | disposition home or self-care (01) | DRG 371 ==
LOC: C.4D 20:22 → C.4M 06-03 21:00
PROVIDERS: ADMIT Student in an Organized Health Care Education/Training Program; ATTEND Student in an Organized Health Care Education/Training Program
PROC: 3E0P7VZ Introduction of Hormone into Female Reproductive, Via Natural or Artificial Opening (ICD-10-PCS; 2017-06-02)
PROC: 10D00Z1 Extraction of Products of Conception, Low, Open Approach (ICD-10-PCS; principal; 2017-06-03)
DX: O75.89 Other specified complications of labor and delivery (principal); M35.00 Sjogren syndrome, unspecified; O76 Abnormality in fetal heart rate and rhythm complicating labor and delivery; O99.89 Other specified diseases and conditions complicating pregnancy, childbirth and the puerperium; O99.02 Anemia complicating childbirth; D64.9 Anemia, unspecified; Z37.0 Single live birth; Z3A.39 39 weeks gestation of pregnancy